=== PATIENT | female | born 1960 | race Caucasian/White ===

== ENCOUNTER 2022-10-25 12:10 | Inpatient (IN) | payer MEDICARE, OTHER ==
[~2022-10-25] VITALS: Ht 149 cm; Wt 55.0 kg
--- NOTE | 2022-10-25 12:24 | ED General ---
General Stated Complaint: EDEMA | SOA Source of Information: Patient, EMS Exam Limitations: Physical Impairments History of Present Illness Date Seen by Provider: Oct 25, 2022 Time Seen by Provider: 12:15 Initial Comments 62-year-old female with unknown past medical history coming in via EMS after a remote fall at unknown time, patient sitting on the couch found by sister. Patient covered in urine and old bruising. Patient jaundice per EMS with unknown time that this began. Patient states she does not believe she has liver disease. She does not know her medical problems at this time. Further elements of the history and physical were unable to be obtained due to the patient's mental status Allergies and Home Medications Allergies Coded Allergies: No Known Drug Allergies (Unverified , 10/25/22) Patient Home Medication List Home Medication List Reviewed: Yes Review of Systems Review of Systems Constitutional: No fever EENTM: no symptoms reported Respiratory: no symptoms reported Cardiovascular: no symptoms reported Gastrointestinal: no symptoms reported Genitourinary: no symptoms reported Musculoskeletal: back pain, joint pain Skin: see HPI Psychiatric/Neurological: See HPI Hematologic/Lymphatic: No Symptoms Reported Immunological/Allergic: no symptoms reported All Other Systems Reviewed Negative Unless Noted: Yes Past Gehcmle-Jmptff-Ibiuvs Hx Patient Social History Alcohol Use?: Yes Past Medical History Surgery/Hospitalization HX: Unknown surgical history Physical Exam Vital Signs Vital Signs - First Documented 10/25/22 10/25/22 12:10 12:52 Temp 36.2 Pulse 105 Resp 21 B/P (MAP) 115/68 (84) Pulse Ox 99 O2 Delivery Nasal Cannula O2 Flow Rate 3.00 Capillary Refill : Height, Weight, BMI Height: '" Weight: lbs. oz. kg; BMI Method: General Appearance: No Apparent Distress, WD/WN Eyes: Bilateral Eye Normal Inspection, Bilateral Eye Scleral Icterus HEENT: PERRL/EOMI, Normal ENT Inspection, Pharynx Normal Neck: Full Range of Motion, Normal Inspection, Non Tender, Supple Respiratory: Chest Non Tender, No Accessory Muscle Use, No Respiratory Distress, Crackles Cardiovascular: Normal Peripheral Pulses, Tachycardia, Other (Lower extremity edema) Gastrointestinal: Normal Bowel Sounds, Non Tender, Soft; No Guarding Back: No Vertebral Tenderness, Other (Significant bruising to the right flank, left flank, pelvis) Extremity: Normal Capillary Refill, Normal Range of Motion, No Calf Tenderness, Pedal Edema, Other (Bruising to the front of the right thigh) Neurologic/Psychiatric: Alert, No Motor/Sensory Deficits, Normal Mood/Affect, Other (Oriented to person only) Skin: Warm/Dry, Other (Scleral icterus, jaundiced) Lymphatic: No Adenopathy Progress/Results/Core Measures Suspected Sepsis SIRS Temperature: Pulse: Respiratory Rate: Laboratory Tests 10/25/22 12:55: White Blood Count 14.0H Blood Pressure / Mean: Laboratory Tests 10/25/22 12:55: Creatinine 0.60, INR Comment 2.4H, Platelet Count 84L, Total Bilirubin 12.5*H Results/Orders Lab Results Laboratory Tests Test 10/25/22 12:25 10/25/22 12:42 10/25/22 12:55 Range/Units Influenza Type A (RT-PCR) Detected H Not Detecte Influenza Type B (RT-PCR) Not Detected Not Detecte SARS-CoV-2 RNA (RT-PCR) Not Detected Not Detecte Urine Color YELLOW Urine Clarity CLEAR Urine pH 6.0 5-9 Urine Specific Pollard 1.015 L 1.016-1.022 Urine Protein NEGATIVE NEGATIVE Urine Glucose (UA) TRACE H NEGATIVE Urine Ketones TRACE H NEGATIVE Urine Nitrite NEGATIVE NEGATIVE Urine Bilirubin 3+ H NEGATIVE Urine Urobilinogen >=8.0 < = 1.0 MG/DL Urine Leukocyte Esterase NEGATIVE NEGATIVE Urine RBC (Auto) NEGATIVE NEGATIVE Urine RBC NONE /HPF Urine WBC 0-2 /HPF Urine Squamous Epithelial Cells NONE /HPF Urine Renal Epithelial Cells NONE /HPF Urine Crystals NONE /LPF Urine Bacteria NEGATIVE /HPF Urine Casts NONE /LPF Urine Mucus NEGATIVE /LPF Urine Culture Indicated NO Urine Opiates Screen NEGATIVE NEGATIVE Urine Oxycodone Screen NEGATIVE NEGATIVE Urine Methadone Screen NEGATIVE NEGATIVE Urine Propoxyphene Screen NEGATIVE NEGATIVE Urine Barbiturates Screen NEGATIVE NEGATIVE Ur Tricyclic Antidepressants Screen NEGATIVE NEGATIVE Urine Phencyclidine Screen NEGATIVE NEGATIVE Urine Amphetamines Screen NEGATIVE NEGATIVE Urine Methamphetamines Screen NEGATIVE NEGATIVE Urine Benzodiazepines Screen NEGATIVE NEGATIVE Urine Cocaine Screen NEGATIVE NEGATIVE Urine Cannabinoids Screen NEGATIVE NEGATIVE White Blood Count 14.0 H 4.3-11.0 10^3/uL Red Blood Count 3.23 L 3.80-5.11 10^6/uL Hemoglobin 10.4 L 11.5-16.0 g/dL Hematocrit 32 L 35-52 % Mean Corpuscular Volume 100 H 80-99 fL Mean Corpuscular Hemoglobin 32 25-34 pg Mean Corpuscular Hemoglobin Concent 32 32-36 g/dL Red Cell Distribution Width 22.9 H 10.0-14.5 % Platelet Count 84 L 130-400 10^3/uL Mean Platelet Volume 10.5 9.0-12.2 fL Prothrombin Time 26.9 H 12.2-14.7 SEC INR Comment 2.4 H 0.8-1.4 Activated Partial Thromboplast Time 39 H 24-35 SEC Fibrinogen 160 L 221-496 MG/DL Sodium Level 133 L 135-145 MMOL/L Potassium Level 3.4 L 3.6-5.0 MMOL/L Chloride Level 100 98-107 MMOL/L Carbon Dioxide Level 24 21-32 MMOL/L Anion Gap 9 5-14 MMOL/L Blood Urea Nitrogen 20 H 7-18 MG/DL Creatinine 0.60 0.60-1.30 MG/DL Estimat Glomerular Filtration Rate 101 BUN/Creatinine Ratio 33 Glucose Level 87 70-105 MG/DL Calcium Level 8.4 L 8.5-10.1 MG/DL Phosphorus Level 2.7 2.3-4.7 MG/DL Magnesium Level 2.5 H 1.6-2.4 MG/DL Total Bilirubin 12.5 *H 0.1-1.0 MG/DL Direct Bilirubin 7.2 H 0.0-0.3 MG/DL Indirect Bilirubin 5.3 MG/DL Aspartate Amino Transf (AST/SGOT) 153 H 5-34 U/L Alanine Aminotransferase (ALT/SGPT) 91 H 0-55 U/L Alkaline Phosphatase 119 40-136 U/L Total Protein 7.6 6.4-8.2 GM/DL Albumin 2.0 L 3.2-4.5 GM/DL Serum Alcohol < 10 <10 MG/DL My Orders Orders - LUKAS NÚÑEZ MD Ct Head/Cervical Spine Wo (10/25/22 12:18) Ed Iv/Invasive Line Start (10/25/22 12:18) Cbc No Diff (10/25/22 12:18) Basic Metabolic Panel (10/25/22 12:18) Phosphorus (10/25/22 12:18) Alcohol (10/25/22 12:18) Protime With Inr (10/25/22 12:18) Partial Thromboplastin Time (10/25/22 12:18) Fibrinogen (10/25/22 12:18) Ua Culture If Indicated (10/25/22 12:18) Liver Panel (10/25/22 12:18) Drug Screen Stat (Urine) (10/25/22 12:18) Magnesium (10/25/22 12:18) Type And Screen (10/25/22 12:18) End Tidal Co2 (10/25/22 12:18) O2 (10/25/22 12:18) Monitor-Rhythm Ecg Trace Only (10/25/22 12:18) Influenza A And B By Pcr (10/25/22 12:18) Covid 19 Inhouse Test (10/25/22 12:18) Ct Chest/Abdomen/Pelvis Wo (10/25/22 12:18) Ns Iv 1000 Ml (Sodium Chloride 0.9%) (10/25/22 14:45) Vancomycin Injection (Vancomycin Injecti (10/25/22 14:45) Cefepime Injection (Maxipime Injection) (10/25/22 14:45) Ammonia (10/25/22 14:44) Ed Admission (Communication) (10/25/22 14:45) Vital Signs/I&O 10/25/22 10/25/22 12:10 12:52 Temp 36.2 Pulse 105 Resp 21 B/P (MAP) 115/68 (84) Pulse Ox 99 98 O2 Delivery Nasal Cannula Nasal Cannula O2 Flow Rate 3.00 3.00 Capillary Refill : Progress Note : Progress Note 62yoF with above history coming in due to AMS and found down. Patient was hypoxic on presentation and placed on oxygen. An IV was placed and basic labs were obtained significant for T bili greater than 12. I called [facility] and have labs faxed over with her bilirubin August 03 of this year 5.8, creatinine 0.4, sodium 135, potassium 3.6, glucose 99, bicarb of 20, white blood cell count 3.49, hemoglobin 11.1, hemoglobin A1c 4.[address] head, cervical spine, chest, abdomen, pelvis today with concerns for bilateral pulmonary infiltrates. Influenza test was positive for influenza A. I contacted Dr. Yoon who will admit her for her respiratory failure. The patient was given antibiotics while in the ER. Of note, the patient does have an anterior shoulder dislocation on CT. I attempted to apply traction with countertraction with little success. I suspect the shoulder has been out since her fall almost 2 weeks ago, and is chronic at this point. She would be a terrible candidate for sedation which would be required to get the shoulder back in place. We will forego further attempts at this time. Diagnostic Imaging Diagonstic Imaging: CT (head, c spine, chest, abd/pelvis) Comments NAME: JAH YOUSSEF [facility] REC#: [id number] PT STATUS: REG ER : 1960 PHYSICIAN: LUKAS NÚÑEZ MD ADMIT DATE: 10/25/22/ER Draft Date of Exam:10/25/22 CT CHEST/ABDOMEN/PELVIS WO PROCEDURE: CT chest, abdomen, and pelvis without contrast. TECHNIQUE: Multiple contiguous axial images were obtained through the chest, abdomen, and pelvis without the use of intravenous contrast. Auto Exposure Controls were utilized during the CT exam to meet ALARA standards for radiation dose reduction. INDICATION: Confusion and recent fall. No prior studies are available for comparison. CT CHEST: FINDINGS: No axillary lymphadenopathy is identified. Mediastinal and hilar evaluation is limited without intravenous contrast. No definite mediastinal hematoma is identified. There is no pericardial or pleural fluid detected. Parenchymal evaluation does show some extensive airspace and ground-glass infiltrates involving the right upper lobe. There are patchy areas of ground-glass infiltrates throughout bilateral upper lobes as well as the right middle lobe and lingula. Bony structure evaluation does show an anterior dislocation of the right shoulder. The humeral head appears to be subcoracoid in location. There does appear to be impaction of the posterior humeral head consistent with Hill-Sachs deformity. No other bony abnormalities are detected. IMPRESSION: 1. Extensive patchy bilateral ground-glass and airspace pulmonary infiltrates, likely on an infectious/inflammatory basis. This is most marked involving the right upper lobe. COVID-19 infection cannot be entirely excluded. 2. Right anterior shoulder dislocation with Hill-Sachs deformity of the humeral head. CT ABDOMEN AND PELVIS: FINDINGS: There is somewhat nodular contour to the liver suggestive of cirrhosis. No discrete liver mass is identified. Spleen is normal in size. There is perihepatic and perisplenic ascites. Gallbladder is unremarkable. No definite biliary ductal dilatation is seen. The pancreas, adrenal glands, and kidneys are unremarkable apart from a probable cyst in the right kidney. The aorta is calcified but nonaneurysmal. Bowel loops appear to be normal in caliber without evidence of obstruction. There is some free fluid in the abdomen and pelvis. Uterus is unremarkable. Bladder is unremarkable. No acute bony abnormality is seen. IMPRESSION: 1. Lobulated contour to the liver, raising question of cirrhosis. There is some abdominal and pelvic ascites. No definite splenomegaly or varices are detected. 2. No other significant abnormality is detected. Dictated on workstation # [id number] Dict: 10/25/22 1412 Trans: 10/25/22 1426 [id number] Interpreted by: KYUNG LUA MD Electronically signed by: CONNOR VIA [place], [place] NAME: JAH YOUSSEF [facility] REC#: [id number] PT STATUS: REG ER : 1960 PHYSICIAN: LUKAS NÚÑEZ MD ADMIT DATE: 10/25/22/ER Draft Date of Exam:10/25/22 CT HEAD/CERVICAL SPINE WO PROCEDURE: CT head and CT cervical spine without contrast. TECHNIQUE: Multiple contiguous axial images were obtained through the brain and cervical spine without the use of intravenous contrast. Sagittal and coronal reformations through the cervical spine were then performed. Auto Exposure Controls were utilized during the CT exam to meet ALARA standards for radiation dose reduction. INDICATION: Fall. COMPARISON: No prior studies are available for comparison. FINDINGS: CT HEAD: Ventricles and sulci are within normal limits. There is some patchy periventricular low attenuation, consistent with chronic microvascular ischemia. No sulcal effacement or midline shift is identified. No acute intra-axial or extra-axial hemorrhage is detected. Cisterns are patent. Visualized paranasal sinuses are clear. IMPRESSION: Changes of chronic microvascular ischemia. No acute intracranial process is detected. CT CERVICAL SPINE: There is reversal of the normal cervical lordotic curvature. There is multilevel facet arthropathy, particularly left-sided facets. There is also C5-C6 degenerative disc disease with disc space narrowing and marginal spurring. No fractures are identified. Prevertebral tissues are within normal limits. Odontoid is intact. Imaging through the upper lung duran demonstrates extensive airspace infiltrate in the right upper lobe. There are some minimal patchy groundglass infiltrates in the left upper lobe. IMPRESSION: 1. Reversal of normal cervical lordotic curvature. No acute bony abnormality is detected. 2. Extensive airspace infiltrate in the right upper lobe with some minimal patchy groundglass infiltrate in the left upper lobe. Dictated on workstation # [id number] Dict: 10/25/22 1359 Trans: 10/25/22 1415 [id number] Interpreted by: KYUNG LUA MD Electronically signed by: Departure Impression Primary Impression: Respiratory failure Qualified Codes: J96.01 - Acute respiratory failure with hypoxia Additional Impressions: Influenza A Liver failure Qualified Codes: K72.00 - Acute and subacute hepatic failure without coma Anterior shoulder dislocation Qualified Codes: S43.014A - Anterior dislocation of right humerus, initial encounter Disposition: ADMITTED INPATIENT Condition: Stable Admissions Decision to Admit Reason: Admit from ER (General) Decision to Admit/Date: Oct 25, 2022 Time/Decision to Admit Time: 14:30 LUKAS NÚÑEZ MD Oct 25, 2022 12:24
[2022-10-25 12:52] LABS: CLARITY,URINE CLEAR; COLOR,URINE YELLOW; GLUCOSE, URINE (UA) TRACE (NEGATIVE); KETONES,URINE TRACE (NEGATIVE); LEUKOCYTE ESTERASE ,URINE NEGATIVE (NEGATIVE); NITRITE,URINE NEGATIVE (NEGATIVE); PROTEIN,URINE NEGATIVE (NEGATIVE)
[2022-10-25 13:04] LABS: AMPHETAMINE SCREEN, URINE NEGATIVE (NEGATIVE); BARBITURATE SCREEN URINE NEGATIVE (NEGATIVE); BENZODIAZEPINES SCREEN URINE NEGATIVE (NEGATIVE); CANNABINOID SCREEN, URINE NEGATIVE (NEGATIVE); COCAINE SCREEN URINE NEGATIVE (NEGATIVE); METHADONE STAT NEGATIVE (NEGATIVE); OPIATE SCREEN URINE NEGATIVE (NEGATIVE); TRICYCLIC ANTIDEPRESSANTS SCRE NEGATIVE (NEGATIVE)
[2022-10-25 13:05] LABS: OXYCODONE STAT NEGATIVE (NEGATIVE); PROPOXYPHENE STAT NEGATIVE (NEGATIVE)
[2022-10-25 13:06] LABS: BACTERIA,URINE NEGATIVE /HPF; BILIRUBIN,URINE 3+ (NEGATIVE); WBC,URINE 0-2 /HPF
[2022-10-25 13:15] LABS: HEMATOCRIT 32 % (35-52); HEMOGLOBIN 10.4 g/dL (11.5-16.0); MEAN CORPUSCULAR HEMOGLOBIN 32 pg (25-34); MEAN CORPUSCULAR HGB CONC 32 g/dL (32-36); MEAN CORPUSCULAR VOLUME 100 fL (80-99); MEAN PLATELET VOLUME 10.5 fL (9.0-12.2); PLATELET COUNT 84 10^3/uL (130-400)
[2022-10-25 13:38] LABS: INR 2.4 (0.8-1.4); PROTHROMBIN TIME PATIENT 26.9 SEC (12.2-14.7)
[2022-10-25 13:49] LABS: ALANINE AMINOTRANSFERASE 91 U/L (0-55); ALKALINE PHOSPHATASE 119 U/L (40-136); BILIRUBIN,DIRECT 7.2 MG/DL (0.0-0.3); BILIRUBIN,INDIRECT 5.3 MG/DL; BUN/CREATININE RATIO 33; CALCIUM 8.4 MG/DL (8.5-10.1); CARBON DIOXIDE 24 MMOL/L (21-32); CHLORIDE 100 MMOL/L (98-107); GFR ESTIMATED 101; GLUCOSE 87 MG/DL (70-105); MAGNESIUM 2.5 MG/DL (1.6-2.4); PHOSPHORUS 2.7 MG/DL (2.3-4.7); POTASSIUM 3.4 MMOL/L (3.6-5.0); SODIUM 133 MMOL/L (135-145); TOTAL PROTEIN 7.6 GM/DL (6.4-8.2)
--- NOTE | 2022-10-25 14:15 | Diagnostic Imaging Report ---
PROCEDURE: CT head and CT cervical spine without contrast. TECHNIQUE: Multiple contiguous axial images were obtained through the brain and cervical spine without the use of intravenous contrast. Sagittal and coronal reformations through the cervical spine were then performed. Auto Exposure Controls were utilized during the CT exam to meet ALARA standards for radiation dose reduction. INDICATION: Fall. COMPARISON: No prior studies are available for comparison. FINDINGS: CT HEAD: Ventricles and sulci are within normal limits. There is some patchy periventricular low attenuation, consistent with chronic microvascular ischemia. No sulcal effacement or midline shift is identified. No acute intra-axial or extra-axial hemorrhage is detected. Cisterns are patent. Visualized paranasal sinuses are clear. IMPRESSION: Changes of chronic microvascular ischemia. No acute intracranial process is detected. CT CERVICAL SPINE: There is reversal of the normal cervical lordotic curvature. There is multilevel facet arthropathy, particularly left-sided facets. There is also C5-C6 degenerative disc disease with disc space narrowing and marginal spurring. No fractures are identified. Prevertebral tissues are within normal limits. Odontoid is intact. Imaging through the upper lung duran demonstrates extensive airspace infiltrate in the right upper lobe. There are some minimal patchy groundglass infiltrates in the left upper lobe. IMPRESSION: 1. Reversal of normal cervical lordotic curvature. No acute bony abnormality is detected. 2. Extensive airspace infiltrate in the right upper lobe with some minimal patchy groundglass infiltrate in the left upper lobe. Dictated by: Dictated on workstation # [id number]
[2022-10-25 14:16] LABS: BILIRUBIN,TOTAL 12.5 MG/DL (0.1-1.0)
--- NOTE | 2022-10-25 14:26 | Diagnostic Imaging Report ---
PROCEDURE: CT chest, abdomen, and pelvis without contrast. TECHNIQUE: Multiple contiguous axial images were obtained through the chest, abdomen, and pelvis without the use of intravenous contrast. Auto Exposure Controls were utilized during the CT exam to meet ALARA standards for radiation dose reduction. INDICATION: Confusion and recent fall. No prior studies are available for comparison. CT CHEST: FINDINGS: No axillary lymphadenopathy is identified. Mediastinal and hilar evaluation is limited without intravenous contrast. No definite mediastinal hematoma is identified. There is no pericardial or pleural fluid detected. Parenchymal evaluation does show some extensive airspace and ground-glass infiltrates involving the right upper lobe. There are patchy areas of ground-glass infiltrates throughout bilateral upper lobes as well as the right middle lobe and lingula. Bony structure evaluation does show an anterior dislocation of the right shoulder. The humeral head appears to be subcoracoid in location. There does appear to be impaction of the posterior humeral head consistent with Hill-Sachs deformity. No other bony abnormalities are detected. IMPRESSION: 1. Extensive patchy bilateral ground-glass and airspace pulmonary infiltrates, likely on an infectious/inflammatory basis. This is most marked involving the right upper lobe. COVID-19 infection cannot be entirely excluded. 2. Right anterior shoulder dislocation with Hill-Sachs deformity of the humeral head. CT ABDOMEN AND PELVIS: FINDINGS: There is somewhat nodular contour to the liver suggestive of cirrhosis. No discrete liver mass is identified. Spleen is normal in size. There is perihepatic and perisplenic ascites. Gallbladder is unremarkable. No definite biliary ductal dilatation is seen. The pancreas, adrenal glands, and kidneys are unremarkable apart from a probable cyst in the right kidney. The aorta is calcified but nonaneurysmal. Bowel loops appear to be normal in caliber without evidence of obstruction. There is some free fluid in the abdomen and pelvis. Uterus is unremarkable. Bladder is unremarkable. No acute bony abnormality is seen. IMPRESSION: 1. Lobulated contour to the liver, raising question of cirrhosis. There is some abdominal and pelvic ascites. No definite splenomegaly or varices are detected. 2. No other significant abnormality is detected. Dictated by: Dictated on workstation # [id number]
[2022-10-25] MEDS ORDERED: NS IV 1000 ML 1,000 ML IV SCH (14:45)
[2022-10-25] MEDS ORDERED: VANCOMYCIN INJECTION 1,000 MG in NS (IVPB) 250 ML IV ONE (14:45)
[2022-10-25] MEDS ORDERED: CEFEPIME INJECTION 1,000 MG in NS (IVPB) 50 ML IV ONE (14:45)
--- NOTE | 2022-10-25 15:35 | Diagnostic Imaging Report ---
INDICATION: Right shoulder pain. TECHNIQUE: AP, oblique, and transscapular views of the right shoulder are obtained. FINDINGS: There is anterior or subcoracoid dislocation of the right glenohumeral joint. There are underlying chronic changes of the AC joint and glenohumeral joint. IMPRESSION: Underlying degenerative findings. Evidence of subcoracoid or anterior dislocation of the right glenohumeral joint. Dictated by: Dictated on workstation # [id number]
[2022-10-25] MEDS ORDERED: polyethylene glycoL POWDER 17 GM (MIRALAX) PACK PO PRN (16:30)
[2022-10-25] MEDS ORDERED: BISACODYL 10 MG SUPP (DULCOLAX) PR PRN (16:30)
[2022-10-25] MEDS ORDERED: ONDANSETRON 4 MG/2 ML (SDV) Z0FRAN IV PRN (16:30)
[2022-10-25] MEDS ORDERED: ANTACID SUSP 30 ML UDC (MYLANTA) PO PRN (16:30)
[2022-10-25] MEDS ORDERED: MELATONIN 3 MG TABLET PO PRN (16:30)
[2022-10-25] MEDS ORDERED: MILK OF MAGNESIA 400 MG/5 ML 30 ML UDC PO PRN (16:30)
[2022-10-25] MEDS ORDERED: ACETAMINOPHEN 325 MG TABLET PO PRN (16:30)
[2022-10-25] MEDS ORDERED: ONDANSETRON 4 MG (ZOFRAN) ORAL DISSOLVE TAB PO PRN (16:30)
[2022-10-25] MEDS ORDERED: CALCIUM CARBONATE 500 MG (TUMS) TAB.CHEW PO PRN (16:30)
[2022-10-25] MEDS ORDERED: AZITHROMYCIN 250 MG TAB (ZITHROMAX) PO NR (16:45)
[2022-10-25] MEDS: D5 1/2 NS W/KCL 20 MEQ/L 1,000 ML IV SCH (17:14)
[2022-10-25] MEDS: ENOXAPARIN 40 MG/0.4 ML (LOVENOX) SYR SC SCH (17:15)
[2022-10-25] MEDS: cefTRIAXone 1 GM PRE-MIX 50 ML IV SCH (17:16)
[2022-10-25] MEDS ORDERED: AZITHROMYCIN INJECTION 500 MG in NS (IVPB) 250 ML IV NR (17:45)
[2022-10-25 19:33] VITALS: BP 101/49
[2022-10-25 19:36] VITALS: BP 94/44
[2022-10-25] MEDS ORDERED: ACETAMINOPHEN 650 MG SUPP (TYLENOL) PR PRN (20:00)
[2022-10-25] MEDS: LACTULOSE SYRUP 10GM/15ML (ENULOSE) 30ML UDC PO SCH (20:08)
[2022-10-25] MEDS: SENNOSIDES 8.6 MG (SENOKOT) TAB PO SCH (20:08)
[2022-10-25] MEDS: DOCUSATE SODIUM 100 MG (COLACE) CAP PO SCH (20:08)
[2022-10-25] MEDS ORDERED: ZIPRASIDONE 20 MG INJ (GEODON) VIAL IM PRN (20:15)
[2022-10-25] MEDS ORDERED: LORazepam INJ 2 MG/ML (ATIVAN) VIAL IVP PRN (20:15)
[2022-10-25] MEDS ORDERED: WATER (STERILE) FOR INJ 10 ML BTL INJ SCH (20:15)
[2022-10-25] MEDS ORDERED: ACETAMINOPHEN 650 MG SUPP (TYLENOL) ONE (20:21)
[2022-10-25] MEDS: OSELTAMIVIR 75 MG (TAMIFLU) CAPSULE PO SCH (20:32)
[2022-10-26] VITALS (7 sets, daily range): BP systolic 90–128; BP diastolic 47–63
[2022-10-26 06:13] LABS: BASOPHILS % (AUTO) 0 % (0-10); HEMOGLOBIN 8.9 g/dL (11.5-16.0)
[2022-10-26 06:15] LABS: BASOPHILS # (AUTO) 0.1 10^3/uL (0.0-0.1); EOSINOPHILS # (AUTO) 0.1 10^3/uL (0.0-0.3); EOSINOPHILS % (AUTO) 0 % (0-10); HEMATOCRIT 28 % (35-52); LYMPHOCYTES # (AUTO) 1.8 10^3/uL (1.0-4.0); LYMPHOCYTES % (AUTO) 8 % (12-44); MEAN CORPUSCULAR HEMOGLOBIN 32 pg (25-34); MEAN CORPUSCULAR HGB CONC 32 g/dL (32-36); MEAN CORPUSCULAR VOLUME 101 fL (80-99); MEAN PLATELET VOLUME 10.7 fL (9.0-12.2); MONOCYTES # (AUTO) 1.6 10^3/uL (0.0-1.0); MONOCYTES % (AUTO) 7 % (0-12); NEUTROPHILS # (AUTO) 18.1 10^3/uL (1.8-7.8); NEUTROPHILS % (AUTO) 83 % (42-75); PLATELET COUNT 61 10^3/uL (130-400); WHITE BLOOD COUNT 21.8 10^3/uL (4.3-11.0)
[2022-10-26 06:36] LABS: ANISOCYTOSIS MARKED; BAND NEUTROPHILS 1 %; EOSINOPHILS % (MANUAL) 1 %; LYMPHOCYTES % (MANUAL) 4 %; MONOCYTES % (MANUAL) 6 %; NEUTROPHILS % (MANUAL) 88 %; NUCLEATED RED BLOOD CELLS 1; POLYCHROMASIA MODERATE
[2022-10-26 06:37] LABS: TARGET CELLS SLIGHT
[2022-10-26 06:41] LABS: ALBUMIN 1.6 GM/DL (3.2-4.5); BILIRUBIN,TOTAL 10.5 MG/DL (0.1-1.0); CALCIUM 7.9 MG/DL (8.5-10.1); CREATININE SERUM 0.65 MG/DL (0.60-1.30); POTASSIUM 3.8 MMOL/L (3.6-5.0); TOTAL PROTEIN 6.2 GM/DL (6.4-8.2)
[2022-10-26] MEDS: LACTULOSE SYRUP 10GM/15ML (ENULOSE) 30ML UDC PO SCH ×3 (07:37→20:16)
[2022-10-26] MEDS: OSELTAMIVIR 75 MG (TAMIFLU) CAPSULE PO SCH ×3 (07:37→20:15)
[2022-10-26] MEDS: SENNOSIDES 8.6 MG (SENOKOT) TAB PO SCH ×2 (07:37→20:16)
[2022-10-26] MEDS: DOCUSATE SODIUM 100 MG (COLACE) CAP PO SCH ×2 (07:37→20:16)
[2022-10-26] MEDS: AZITHROMYCIN 250 MG TAB (ZITHROMAX) PO SCH ×2 (07:38→09:36)
--- NOTE | 2022-10-26 09:53 | Physical Therapy Evaluation ---
PT Evaluation-General Medical Diagnosis Admission Date Oct 25, 2022 at 14:45 Medical Diagnosis: Flu A/respiratory distress Onset Date: Oct 25, 2022 Therapy Diagnosis Therapy Diagnosis: severe weakness/debility Precautions Precautions/Isolations: Droplet Isolation Referral Physician: Car Reason for Referral: Evaluation/Treatment Medical History Current History EMS secondary to fall and decline in status Reviewed History: Yes Social History Home: Apartment Prior Prior Level of Function SCALE: Activities may be completed with or without assistive devices. 8-Rtzvrpsqnb-pzwtndn completes the activity by him/herself with no assistance from a helper. 5-Set-up or Clean-up Assistance-helper sets up or cleans up; patient completes activity. [place] assists only prior to or following the activity. 4-Supervision or Touching Assistance-helper provides verbal cues and/or touching/steadying and/or contact guard assistance as patient completes activity. Assistance may be provided throughout the activity or intermittently. 3-Partial/Moderate Assistance-helper does LESS THAN HALF the effort. [place] lifts, holds or supports trunk or limbs, but provides less than half the effort. 2-Substantial/Maximal Assistance-helper does MORE THAN HALF the effort. [place] lifts or holds trunk or limbs and provides more than half the effort. 7-Wzvmqymtu-udalyn does ALL the effort. Patient does none of the effort to complete the activity. Or, the assistance of 2 or more helpers is required for the patient to complete the activity. If activity was not attempted, code reason: 7-Patient Refused. 9-Not Applicable-not attempted and the patient did not perform the activity before the current illness, exacerbation or injury. 10-Not Attempted due to Environmental Limitations-(lack of equipment, weather restraints, etc.). 88-Not Attempted due to Medical Conditions or Safety Concerns. unable to determine due to patient's confusion PT Evaluation-Current Subjective Patient yells with turning in bed. Objective Patient Orientation: Confused Attachments: Sesay Catheter, IV ROM/Strength ROM Lower Extremities bilateral LE WFL Strength Lower Extremities NT Integumentary/Posture Bladder Incontinence: Sesay Cath Neuromuscular (Tone, Coordination, Reflexes) severely diminished with all Sensory Vision: Unable to Assess Hearing: Functional Transfers Roll Left to Right (QC): 1 (x 2) Assessment/Needs Patient has a wound on her sacrum/coccyx with wound care nurse in to assess. Patient is currently severely confused and resistive with all mobility. PT will continue to increase activity as tolerated by patient. Rehab Potential: Poor PT Shelter Goals Shelter Goals PT Crib Pad Maker Goals Time Frame: Nov 13, 2022 Roll Left & Right (QC): 3 Sit to Lying (QC): 3 Lying-Sitting on Side/Bed(QC): 3 Sit to Stand (QC): 3 Chair/Zez-hc-Ypeto Xfer(QC): 3 Toilet Transfer (QC): 3 Walk 10 feet (QC): 3 PT Plan Problem List Problem List: Activity Tolerance, Functional Strength, Safety, Balance, Gait, Transfer, Bed Mobility Treatment/Plan Treatment Plan: Continue Plan of Care Treatment Plan: Bed Mobility, Education, Functional Activity Jun, Functional Strength, Gait, Safety, Therapeutic Exercise, Transfers Treatment Duration: Nov 13, 2022 Frequency: 5 times per week Estimated Hrs Per Day: .25 hour per day Time Time In: 910 Time Out: 921 DATE: Oct 26, 2022 Total Billed Treatment Time: 11 Total Billed Treatment 1 visit [facility] 11 min MICHA JO PT Oct 26, 2022 09:53
[2022-10-26] MEDS: D5 1/2 NS W/KCL 20 MEQ/L 1,000 ML IV SCH ×2 (10:22→20:24)
--- NOTE | 2022-10-26 11:31 | Occupational Therapy Eval ---
OT Evaluation-General/PLF Medical Diagnosis Admission Date Oct 25, 2022 at 14:45 Medical Diagnosis: Flu A/respiratory distress Onset Date: Oct 25, 2022 Therapy Diagnosis Therapy Diagnosis: reduced adl status Precautions Precautions/Isolations: Droplet Isolation, Fall Prevention, Pressure Ulcer Referral Physician: Car Green Reason: Evaluation/Treatment Medical History Additional Medical History end stage liver disease, jaundice Current History Pt presented to ER after fall and decline in status. Jaundice observable and very large wound on sacrum/coccyx area. Pt having difficulty answering PLOF questions however family present and able to provide accurate responses. Per family, pt lives alone in an apartment. She was independent with adls and iadls prior to Thanks and uses a walker at baseline. Pt does not drive, thus family provides groceries and transportation. Social History Home: Apartment (located in basement) Current Living Status: Alone Entry Into Home: Stairs With Railing ADL-Prior Level of Function SCALE: Activities may be completed with or without assistive devices. 0-Fzcrtfvtns-simbxpd completes the activity by him/herself with no assistance from a helper. 5-Set-up or Clean-up Assistance-helper sets up or cleans up; patient completes activity. [place] assists only prior to or following the activity. 4-Supervision or Touching Assistance-helper provides verbal cues and/or touching/steadying and/or contact guard assistance as patient completes activity. Assistance may be provided throughout the activity or intermittently. 3-Partial/Moderate Assistance-helper does LESS THAN HALF the effort. [place] lifts, holds or supports trunk or limbs, but provides less than half the effort. 2-Substantial/Maximal Assistance-helper does MORE THAN HALF the effort. [place] lifts or holds trunk or limbs and provides more than half the effort. 9-Amygjovkl-vixkno does ALL the effort. Patient does none of the effort to complete the activity. Or, the assistance of 2 or more helpers is required for the patient to complete the activity. If activity was not attempted, code reason: 7-Patient Refused. 9-Not Applicable-not attempted and the patient did not perform the activity before the current illness, exacerbation or injury. 10-Not Attempted due to Environmental Limitations-(lack of equipment, weather restraints, etc.). 88-Not Attempted due to Medical Conditions or Safety Concerns. Self Care: Independent Functional Cognition: Unknown DME/Equipment: Bath Chair (family just recently bought a shower chair per sister. ), Tub/Shower Drive Self: No OT Current Status Subjective Pt reports significant pain in back at OT arrival. She presents in sidelying. Appearance Pt left in sidelying at OT departure, family present in room. Mental Status/Objective Patient Orientation: Person, Confused Attachments: Sesay Catheter, IV, Oxygen Current Glasses/Contacts: No Hearing Aids: No Dentures/Partials: No Hand Dominance: Left Upper Extremity ROM Pt refuses A/PROM at shoulders, elbows, and wrist due to c/o pain and being too cold. She does actively move hand/fingers upon request. Upper Extremity Strength severely debilitated ADL-Treatment Eating (QC): 1 (per report) On/Off Footwear (QC): 1 Toileting Hygiene (QC): 1 Pt refuses all ADLs even at bed level. Per PT, pt requires assist x2 to roll R/L. Per patient, she has a fear of falling off the bed and thus that is why she needed extra assist. Encouragement to perform as much as possible during stay in order to increase strength/endurance needed for functional tasks. Education OT Patient Education: Correct positioning, Purpose of tx/functional activities, Safety issues, Transfer techniques Teaching Recipient: Patient Teaching Methods: Demonstration, Discussion Response to Teaching: Verbalize Understanding, Return Demonstration, Reinfor cement Needed OT Care Home Goals Care Home Goals Time Frame: Nov 16, 2022 Eating (QC): 4 Oral Hygiene (QC): 4 Toileting Hygiene (QC): 3 Shower/Bathe Self (QC): 3 Upper Body Dressing (QC): 3 Lower Body Dressing (QC): 3 On/Off Footwear (QC): 3 Additional Goals: 1-Demonstrate ADL Tasks, 2-Verbalize Understanding, 3- ImproveStrength/Jun 1=Demonstrate adherence to instructed precautions during ADL tasks. 2=Patient will verbalize/demonstrate understanding of assistive devices/modifications for ADL. 3=Patient will improve strength/tolerance for activity to enable patient to perform ADL's. OT Education/Plan Problem List/Assessment Assessment: Decreased Activ Tolerance, Decreased Safety Aware, Decreased UE Strength, Dependent Transfers, Impaired Bed Mobility, Impaired Cognition, Impaired Funct Balance, Impaired I ADL's, Impaired Self-Care Skills, Restricted Funct UE ROM Discharge Recommendations Plan/Recommendations: Continue POC Therapy Discharge Recommendati: 24 Hour Supervision, Scheduled Assistance, Bath Aide, Post Acute OT Treatment Plan/Plan of Care Treatment,Training & Education: Yes Patient would benefit from OT for education, treatment and training to promote independence in ADL's, mobility, safety and/or upper extremity function for ADL's. Plan of Care: ADL Retraining, Caregiver Training, Cognitive Retraining, Functional Mobility, Group Exercise/Act as Ind, UE Funct Exercise/Act Treatment Duration: Nov 16, 2022 Frequency: 3 times per week (3-5x/week ) Estimated Hrs Per Day: .25 hour per day Rehab Potential: Poor Time Start Time: 11:13 Stop Time: 11:23 DATE: Oct 26, 2022 Total Time Billed (hr/min): 10 Billed Treatment Time 1 visit Nori Persaud OT Oct 26, 2022 11:31
--- NOTE | 2022-10-26 12:40 | History & Physical-Hospitalist ---
PATYCHRISWILBUR MED STUDENT 10/26/22 1240: History of Present Illness HPI/Chief Complaint Maria Del Rosario is a 62 yo female admitted for respiratory failure and influenza A. Pt's past medical hx is unknown as she is a poor historian. She is alert and oriented x2 with son and sister at bedside. Sister reports there is no DPOA for medical decision making. The pt lives at home alone and had recent falls. The sister apparently found her on the couch covered in urine and bruises. She reports her house is dark, so they did not notice how yellow she was becoming. They only became aware of the liver disease within the last month after going to Dr. Miller for blood work. Family reports pt drinks a 12 pack of beer every couple days and smokes 1-2 ppd of cigarettes. She has been doing both of these for some time. Her last drink and cigarette were 10/13. She has not taking any of her prescribed medications since then either. Pt has coccyx ulceration that family states they just noticed about a week ago. They report she has been sick recently, but they thought she was doing better. Pt was found to have total bilirubin of 10.5. On 08/03/22 t-bili was 5.8 acc ording to ED records. CT chest showed patchy bilateral ground glass and airspace pulmonary infiltrated. CT abd/pelvis showed lobulated liver likely cirrhosis and some abdominal/pelvic ascites. She was also found to have a right anterior shoulder dislocation that was not reducible. She is currently on 4L O2 via NC with adequate oxygen saturations. Source: patient, family Date Seen 10/26/22 Time Seen by a Provider: 09:00 Attending Physician No,Local Physician PCP Admitting Physician: Sonja Flores MD Attending Physician: Sonja Flores MD Referring Physician Date of Admission Oct 25, 2022 at 14:45 Home Medications & Allergies Home Medications Reviewed patient Home Medication Reconciliation performed by pharmacy medication reconciliations central sterile technician and/or nursing. Patients Allergies have been reviewed. Allergies Allergies Coded Allergies No Known Drug Allergies (Jpijnxewmt81/5/22) Past Eczlcfc-Owyvjt-Ynvoco Hx Patient Social History Tobacco Use?: Yes Tobacco type used: Cigarettes Smoking Status: Current Someday Smoker Use of E-Cig and/or Vaping dev: Unable to obtain Substance use?: Unable to obtain Alcohol Use?: Unable to obtain Alcohol type: Beer Alcohol Frequency: Daily Pt feels they are or have been: Unable to obtain Current Status status: Unable to obtain status: Unable to obtain Advance Directives: Unable to obtain Communicates: Verbally Primary Language: Chinese Preferred Spoken Language: Chinese Is interpretation needed?: No Implanted or Applied Medical D: None Review of Systems Constitutional: No chills, No fever; malaise, weakness EENTM: no symptoms reported Respiratory: cough, phlegm Cardiovascular: No chest pain, No palpitations Gastrointestinal: jaundice, loss of appetite Genitourinary: no symptoms reported Musculoskeletal: back pain Skin: change in color Psychiatric/Neurological: No Symptoms Reported Physical Exam Physical Exam Vital Signs Vital Signs - First Documented 10/25/22 10/25/22 12:10 12:52 Temp 36.2 Pulse 105 Resp 21 B/P (MAP) 115/68 (84) Pulse Ox 99 O2 Delivery Nasal Cannula O2 Flow Rate 3.00 Capillary Refill : Less Than 3 Seconds Height, Weight, BMI Height: '" Weight: lbs. oz. kg; 24.77 BMI Method: General Appearance: Chronically ill, Thin HEENT: PERRL/EOMI, Other (Dry mucous membranes) Neck: Full Range of Motion, Normal Inspection Respiratory: Rales, Rhonci, Wheezing Cardiovascular: Regular Rate, Rhythm, No Murmur Gastrointestinal: Non Tender, Soft Extremity: Pedal Edema (2+ pitting edema), Other (woody texture to bilateral feet and ankles) Neurologic/Psychiatric: Alert, Depressed Affect, Disoriented Skin: Jaundice Results Results/Procedures Labs Laboratory Tests 10/25/22 12:55 10/26/22 05:45 Patient resulted labs reviewed. Assessment/Plan Admission Diagnosis Chronic Liver Disease Acute respiratory failure Severe sepsis d/t pneumonia Influenza A Assessment and Plan Chronic Liver Disease Acute respiratory failure Severe sepsis d/t pneumonia Influenza A Coccyx ulcer Anemia Right anterior shoulder dislocation ETOH and tobacco abuse Chronic Liver Disease -Total bili 10.5, increased from 5.8 in July -INR 2.4, AST and ALT elevated -CT abd/pelvis showed lobulated liver likely cirrhosis Acute respiratory failure -On 4L NC currently with adequate saturations Severe sepsis d/t pneumonia -Azithromycin and Ceftriaxone -NaCl at 75mls/hr Influenza A -Supportive care Coccyx ulcer -Wound care consulted -Likely not a surgical candidate for debridement with frail state Anemia Right anterior shoulder dislocation -Not reducible d/t chronicity of dislocation ETOH and tobacco abuse Disposition: Had lengthy discussion with son and sister about pt's poor progno sis. Discussed options for care including hospice. Discussed that pt would not likely be a candidate for debridement of coccyx wound d/t liver disease and inability to intubate. Will talk to social science manager who can provide pt and family with more information on hospice options. Diet: Regular Code status: Full Code Diagnosis/Problems Diagnosis/Problems (1) Decompensated hepatic cirrhosis Status: Acute (2) Anterior shoulder dislocation Status: Acute Qualifiers: Encounter type: initial encounter Laterality: right Qualified Codes: S43.014A - Anterior dislocation of right humerus, initial encounter (3) Respiratory failure Status: Acute Qualifiers: Chronicity: acute Respiratory failure complication: hypoxia Qualified Codes: J96.01 - Acute respiratory failure with hypoxia (4) Influenza A Status: Acute SONJA FLORES MD 10/26/22 1901: History of Present Illness Source: patient, family Exam Limitations: clinical condition Time Seen by a Provider: 11:15 Past Dtokzax-Czwigg-Dkwwyw Hx Family Medical History No Pertinent Family Hx Results Results/Procedures Imaging: Reviewed Imaging Report Assessment/Plan Admission Diagnosis Admission Status: Inpatient Order (span 2 midnights) Reason for Inpatient Admission: Severe sepsis Osteomyelitis Liver failure Influenza Assessment and Plan Admitted with multiple medical issues. Acute on chronic liver failure with end stage liver disease secondary to chronic alcohol use. Severe sepsis with pneumonia and stage IV sacral decubitus ulcer with gram negative chadd bacteremia, started on antibiotics. Wound care consulted for ulcer. Also with influenza A infection. Due to her end stage liver disease and hypoalbuminemia, she is a poor surgical candidate with very low likelihood of wound healing. Her Meld score indicates high risk of 3 month mortality despite her sacral wound and osteomyelitis. We discussed hospice care with the patient and her family. She is slightly confused but was able to voice understanding and agreed with a comfort based approach. Her family will discuss hospice and palliative care will provide further information. If they choose not to pursue hospice, we will move forward with surgical consult for debridement. She will also need Orthopedic surgery consult to evaluate her dislocated shoulder. We will await the family's final decision regarding hospice care. Diagnosis/Problems Diagnosis/Problems (1) Respiratory failure Status: Acute Qualifiers: Chronicity: acute Respiratory failure complication: hypoxia Qualified Codes: J96.01 - Acute respiratory failure with hypoxia (2) Influenza A Status: Acute (3) Decompensated hepatic cirrhosis Status: Acute (4) Severe sepsis Status: Acute (5) Osteomyelitis of sacrum Status: Acute (6) Stage IV pressure ulcer of sacral region Status: Acute (7) Gram-negative bacteremia Status: Acute (8) Poor prognosis Status: Acute (9) Goals of care, counseling/discussion Status: Acute (10) Hypoalbuminemia due to protein-calorie malnutrition Status: Acute (11) Alcohol abuse Status: Acute (12) Tobacco abuse Status: Acute (13) Anterior shoulder dislocation Status: Acute Qualifiers: Encounter type: initial encounter Laterality: right Qualified Codes: S43.014A - Anterior dislocation of right humerus, initial encounter Supervisory-Addendum Brief Verification & Attestation Participated in pt care: history, MDM, physical Personally performed: exam, history, MDM, supervision of care Care discussed with: Medical Student Procedures: n/a Results interpretation: Verified all documentation A medical student performed and documented this service in my presence. I reviewed and verified all information documented by the medical student and made modifications to such information, when appropriate. I personally performed the physical exam and medical decision making. WILBUR LUCIANO MED STUDENT Oct 26, 2022 12:40 SONJA FLORES MD Oct 26, 2022 19:01
[2022-10-26] MEDS: KETOROLAC 15 MG/ML VIAL IVP PRN (13:37)
[2022-10-26] MEDS ORDERED: HYPOCHLOROUS ACID/NaCl (VASHE) 250 ML IR SCH (16:00)
[2022-10-26] MEDS ORDERED: ALPR0.5T7 PO (16:06)
[2022-10-26] MEDS ORDERED: DESV50TA18 PO (16:06)
[2022-10-26] MEDS ORDERED: FURO40TA4 PO (16:06)
[2022-10-26] MEDS ORDERED: QUET100T33 PO (16:06)
--- NOTE | 2022-10-26 16:25 | Wound Care Assessment ---
Wound Care Assessment Date Seen by Provider: Oct 26, 2022 Time Seen by Provider: 15:00 Chief Complaint Unstageable Sacral Pressure Ulcer HPI This 62 year old patient presented to the hospital with influenza A and numerous medical ailments. She is a poor historian and history is obtained from nursing staff and chart only. Maria Del Rosario has end stage liver disease with anemia, thrombocytopenia, severe PEM, ascites, scleral icterus, jaundice, altered mental status and gram negative bacteremia. Upon admission skin assessment she was noted to have a large unstageable pressure ulcer on her sacrum. There is dark eschar to the area that does feel soft underlying. There is a good possibility of very deep ulceration underlying the area of concern. However, due to the size of this ulcer and Maria Del Rosario's severe medical ailments, she is a poor candidate for surgery/anesthesia. Maria Del Rosario has been said to drink a 12 pack every 1-2 days and smokes 1-2 ppd as well. She has severe PEM (albumin of 1.6 today) which is likely both nutritional and related to end stage liver disease. Her gram negative rods on blood culture could be related to her ulceration, SBP or other etiology. I do not think Maria Del Rosario's ulcer will heal in light of her current medical condition. Hospice would be very appropriate for palliative wound care efforts s divya family be amenable. 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), severe PEM, influenza A, Gram negative bacteremia Smoking Status: Current Everyday Smoker (1-2 ppd) Recreational Drug Use: No Alcohol Use: Regular Use (12 pack every 1-2 days) Review of Systems General: Fatigue, Other (altered mental status, confusion) HEENT: Other (hearing wnl) Genitourinary: Other Musculoskeletal: shoulder pain (dislocation) Neurological: Weakness Exam Vital Signs Date Time Temp Pulse Resp B/P (MAP) Pulse Ox O2 Delivery O2 Flow Rate FiO2 10/26/22 12:00 37.2 107 20 104/48 (66) 93 Nasal Cannula 4.00 Capillary Refill : Less Than 3 Seconds General Appearance: thin HEENT: other (normal hearing) Neck: full range of motion Cardiovascular: no edema Respiratory: no respiratory distress, no accessory muscle use Gastrointestinal: soft, other (ascites) Neurologic/Psychiatric: alert, other (not oriented to time or place) Skin: jaundice Sacral Ulcer: 19x8.3x0.1. The epithelialization is none. There is no tunneling or undermining. Drainage is small and serous. Granulation is none. Necrotic is large and eschar. The margins are flat Results Laboratory Tests 10/26/22 05:45: White Blood Count 21.8H, Red Blood Count 2.76L, Hemoglobin 8.9L, Hematocrit 28L, Mean Corpuscular Volume 101H, Mean Corpuscular Hemoglobin 32, Mean Corpuscular Hemoglobin Concent 32, Red Cell Distribution Width 23.3H, Platelet Count 61L, Mean Platelet Volume 10.7, Immature Granulocyte % (Auto) 1, Neutrophils (%) (Auto) 83H, Lymphocytes (%) (Auto) 8L, Monocytes (%) (Auto) 7, Eosinophils (%) (Auto) 0, Basophils (%) (Auto) 0, Neutrophils # (Auto) 18.1H, Lymphocytes # (Auto) 1.8, Monocytes # (Auto) 1.6H, Eosinophils # (Auto) 0.1, Basophils # (Aut o) 0.1, Immature Granulocyte # (Auto) 0.3H, Neutrophils % (Manual) 88, Lymphocytes % (Manual) 4, Monocytes % (Manual) 6, Eosinophils % (Manual) 1, Band Neutrophils 1, Nucleated Red Blood Cells 1, Percent Immature Platelet Fraction 4.0, Polychromasia MODERATE, Anisocytosis MARKED, Macrocytosis MODERATE, Target Cells SLIGHT, Sodium Level 135, Potassium Level 3.8, Chloride Level 103, Carbon Dioxide Level 24, Anion Gap 8, Blood Urea Nitrogen 24H, Creatinine 0.65, Estimat Glomerular Filtration Rate 99, BUN/Creatinine Ratio 37, Glucose Level 151H, Calcium Level 7.9L, Corrected Calcium 9.8, Total Bilirubin 10.5#H, Aspartate Amino Transf (AST/SGOT) 128H, Alanine Aminotransferase (ALT/SGPT) 74H, Alkaline Phosphatase 97, Total Protein 6.2L, Albumin 1.6#L 10/26/22 08:20: Lactic Acid Level 1.53 Microbiology 10/25/22 Blood Culture - Preliminary, Resulted Gram Negative Zya See Comments Microbiology 10/25/22 Blood Culture - Preliminary, Resulted Gram Negative Zay See Comments 10/25/22 Blood Culture - Preliminary, Resulted Gram Negative Zay See Comments Assessment/Plan/Dx Assessment: 1. Unstageable pressure ulcer of sacrum 2. Severe PEM 3. Refractory anemia with thrombocytopenia 4. Influenza A 5. Gram negative bacteremia 6. End stage liver disease with ascites Plan: 1. Cleanse daily with vashe. Apply bordered foam dressing and change once daily. This patient is a good candidate for hospice care with palliative wound care. She is currently high risk for surgical debridement 2. Likely multifocal. Defer to primary 3. Defer to primary 4. Defer to primary 5. Defer to primary 6. Defer to primary JASMIN ALARCON MD Oct 26, 2022 16:25
[2022-10-26] MEDS: ENOXAPARIN 40 MG/0.4 ML (LOVENOX) SYR SC SCH (17:42)
[2022-10-26] MEDS: cefTRIAXone 1 GM PRE-MIX 50 ML IV SCH (17:42)
[2022-10-27] MEDS: KETOROLAC 15 MG/ML VIAL IVP PRN (02:30)
[2022-10-27 03:33] VITALS: BP 116/56
[2022-10-27 06:17] LABS: MEAN CORPUSCULAR VOLUME 102 fL (80-99)
[2022-10-27 06:19] LABS: BASOPHILS # (AUTO) 0.1 10^3/uL (0.0-0.1); BASOPHILS % (AUTO) 0 % (0-10); EOSINOPHILS # (AUTO) 0.3 10^3/uL (0.0-0.3); EOSINOPHILS % (AUTO) 2 % (0-10); HEMATOCRIT 27 % (35-52); HEMOGLOBIN 8.7 g/dL (11.5-16.0); LYMPHOCYTES # (AUTO) 1.2 10^3/uL (1.0-4.0); LYMPHOCYTES % (AUTO) 8 % (12-44); MEAN CORPUSCULAR HEMOGLOBIN 32 pg (25-34); MEAN CORPUSCULAR HGB CONC 32 g/dL (32-36); MEAN PLATELET VOLUME 11.6 fL (9.0-12.2); MONOCYTES # (AUTO) 0.6 10^3/uL (0.0-1.0); MONOCYTES % (AUTO) 4 % (0-12); NEUTROPHILS # (AUTO) 12.4 10^3/uL (1.8-7.8); NEUTROPHILS % (AUTO) 85 % (42-75); PLATELET COUNT 64 10^3/uL (130-400); WHITE BLOOD COUNT 14.6 10^3/uL (4.3-11.0)
[2022-10-27 06:31] LABS: ALBUMIN 1.6 GM/DL (3.2-4.5)
[2022-10-27 06:32] LABS: POTASSIUM 3.7 MMOL/L (3.6-5.0)
[2022-10-27 06:33] LABS: CALCIUM 7.3 MG/DL (8.5-10.1)
[2022-10-27 06:34] LABS: TOTAL PROTEIN 6.5 GM/DL (6.4-8.2)
[2022-10-27 06:36] LABS: BILIRUBIN,TOTAL 9.7 MG/DL (0.1-1.0)
[2022-10-27 06:38] LABS: CREATININE SERUM 0.72 MG/DL (0.60-1.30)
[2022-10-27 07:55] VITALS: BP 103/50
--- NOTE | 2022-10-27 08:30 | Occupational Ther Daily Note ---
OT Current Status-Daily Note Subjective Pt alert, lying in bed. Pt declines any OOB activities. No c/o pain. Mental Status/Objective Patient Orientation: Person, Confused Attachments: IV, Oxygen, Telemetry ADL-Treatment Pt declines any OOB activities or brushing teeth/washing face. Pt requires assist to set up meal then with vc's will use correct utensil to cut food and bring to mouth. After session, pt sitting in recliner with call light/phone in reach. All needs met in room. Therapy Code Descriptions/Definitions Functional [place] Measure: 0=Not Assessed/NA 4=Minimal Assistance 1=Total Assistance 5=Supervision or Setup 2=Maximal Assistance 6=Modified [place] 3=Moderate Assistance 7=Complete IndependenceSCALE: Activities may be completed with or without assistive devices. 7-Dihdmejepc-cvayipd completes the activity by him/herself with no assistance from a helper. 5-Set-up or Clean-up Assistance-helper sets up or cleans up; patient completes activity. [place] assists only prior to or following the activity. 4-Supervision or Touching Assistance-helper provides verbal cues and/or touching/steadying and/or contact guard assistance as patient completes activity. Assistance may be provided throughout the activity or intermittently. 3-Partial/Moderate Assistance-helper does LESS THAN HALF the effort. [place] lifts, holds or supports trunk or limbs, but provides less than half the effort. 2-Substantial/Maximal Assistance-helper does MORE THAN HALF the effort. [place] lifts or holds trunk or limbs and provides more than half the effort. 1-Msrahlgtw-uyuccb does ALL the effort. Patient does none of the effort to complete the activity. Or, the assistance of 2 or more helpers is required for the patient to complete the activity. If activity was not attempted, code reason: 7-Patient Refused. 9-Not Applicable-not attempted and the patient did not perform the activity before the current illness, exacerbation or injury. 10-Not Attempted due to Environmental Limitations-(lack of equipment, weather restraints, etc.). 88-Not Attempted due to Medical Conditions or Safety Concerns. Eating (QC): 5 OT Intermediate Goals Intermediate Goals Time Frame: Nov 16, 2022 Eating (QC): 4 Oral Hygiene (QC): 4 Toileting Hygiene (QC): 3 Shower/Bathe Self (QC): 3 Upper Body Dressing (QC): 3 Lower Body Dressing (QC): 3 On/Off Footwear (QC): 3 Additional Goals: 1-Demonstrate ADL Tasks, 2-Verbalize Understanding, 3- ImproveStrength/Jun 1=Demonstrate adherence to instructed precautions during ADL tasks. 2=Patient will verbalize/demonstrate understanding of assistive devices/modifications for ADL. 3=Patient will improve strength/tolerance for activity to enable patient to perform ADL's. OT Education/Plan Problem List/Assessment Assessment: Decreased Activ Tolerance, Impaired Bed Mobility, Impaired Cognition, Impaired Self-Care Skills Discharge Recommendations Plan/Recommendations: Continue POC Treatment Plan/Plan of Care Patient would benefit from OT for education, treatment and training to promote independence in ADL's, mobility, safety and/or upper extremity function for ADL's. Plan of Care: ADL Retraining, Caregiver Training, Cognitive Retraining, Functional Mobility, Group Exercise/Act as Ind, UE Funct Exercise/Act Treatment Duration: Nov 16, 2022 Frequency: 3 times per week (3-5x/week ) Estimated Hrs Per Day: .25 hour per day Rehab Potential: Poor Time Start Time: 08:00 Stop Time: 08:15 DATE: Oct 27, 2022 Total Time Billed (hr/min): 15 Billed Treatment Time 1 visit-ADL 1 (15 min) KAMRYN MAURO Oct 27, 2022 08:30
[2022-10-27] MEDS: DOCUSATE SODIUM 100 MG (COLACE) CAP PO SCH (08:42)
[2022-10-27] MEDS: OSELTAMIVIR 75 MG (TAMIFLU) CAPSULE PO SCH (08:42)
[2022-10-27] MEDS: AZITHROMYCIN 250 MG TAB (ZITHROMAX) PO SCH (08:42)
[2022-10-27] MEDS: LACTULOSE SYRUP 10GM/15ML (ENULOSE) 30ML UDC PO SCH (08:42)
[2022-10-27] MEDS: SENNOSIDES 8.6 MG (SENOKOT) TAB PO SCH (08:42)
--- NOTE | 2022-10-27 10:15 | Physical Therapy Progress Note ---
Therapy Progress Note Pt laying Supine in bed as SENIOR WEB DESIGNER enters room. DOUGH PANNER had just repositioned to comfort. Pt declined moving at this time. 1 visit, no tx rendered ROBERT ORELLANA PTA Oct 27, 2022 10:15
[2022-10-27] MEDS: D5 1/2 NS W/KCL 20 MEQ/L 1,000 ML IV SCH (11:07)
--- NOTE | 2022-10-27 11:55 | Progress Note - Hospitalist ---
[facility] MED STUDENT 10/27/22 1155: Subjective HPI/CC On Admission Date Seen by Provider: Oct 27, 2022 Time Seen by Provider: 09:15 Maria Del Rosario is a 62 yo female admitted for respiratory failure and influenza A. Pt's past medical hx is unknown as she is a poor historian. She is alert and oriented x2 with son and sister at bedside. Sister reports there is no DPOA for medical decision making. The pt lives at home alone and had recent falls. The sister apparently found her on the couch covered in urine and bruises. She reports her house is dark, so they did not notice how yellow she was becoming. They only became aware of the liver disease within the last month after going to Dr. Miller for blood work. Family reports pt drinks a 12 pack of beer every couple days and smokes 1-2 ppd of cigarettes. She has been doing both of these for some time. Her last drink and cigarette were 10/13. She has not taking any of her prescribed medications since then either. Pt has coccyx ulceration that family states they just noticed about a week ago. They report she has been sick recently, but they thought she was doing better. Pt was found to have total bilirubin of 10.5. On 08/03/22 t-bili was 5.[address] records[address] chest showed patchy bilateral ground glass and airspace pulmonary infiltrated. CT abd/pelvis showed lobulated liver likely cirrhosis and some abdominal/pelvic ascites. She was also found to have a right anterior shoulder dislocation that was not reducible. She is currently on 4L O2 via NC with adequate oxygen saturations. Subjective/Events-last exam Pt being seen in f/u for chronic liver disease, respiratory failure and influenza A. Pt is alert and oriented to self and place, but not time. She has trouble remembering what we talked about yesterday and is unable to recall whether she was given her morning medications. Sister is present at bedside and hospice was once again discussed. Sister stated son would be coming soon to make that decision. Currently pt denies any pain or concerns. ROS neg unless otherwise specified. Review of Systems General: No Chills, No Fatigue HEENT: No Head Aches, No Visual Changes Pulmonary: No Dyspnea, No Cough Cardiovascular: No: Chest Pain, Palpitations Gastrointestinal: No: Nausea, Vomiting, Diarrhea, Constipation Genitourinary: No Dysuria, No Frequency Musculoskeletal: back pain; No: shoulder pain Neurological: No: Weakness, Numbness Focused Exam Lactate Level 10/26/22 08:20: Lactic Acid Level 1.53 Objective Exam Vital Signs Vital Signs Date Time Temp Pulse Resp B/P (MAP) Pulse Ox O2 Delivery O2 Flow Rate FiO2 10/27/22 09:00 Nasal Cannula 4.00 10/27/22 07:55 37.1 89 16 103/50 (67) 98 Capillary Refill : Less Than 3 Seconds General Appearance: Chronically ill, Thin HEENT: PERRL/EOMI, Moist Mucous Membranes Neck: Full Range of Motion, Normal Inspection Respiratory: Chest Non Tender, No Accessory Muscle Use, No Respiratory Distress , Rales Cardiovascular: Regular Rate, Rhythm, No Murmur Gastrointestinal: Non Tender, Distended, Other (bruising across abdomen) Extremity: Non Tender, Pedal Edema (2+ pitting edema to knees bilaterally with woody texture of feet and ankles) Neurologic/Psychiatric: Alert, Depressed Affect, Disoriented Skin: Jaundice Results/Procedures Lab Laboratory Tests 10/27/22 05:45 Patient resulted labs reviewed. Imaging: Reviewed Imaging Report Assessment/Plan Assessment and Plan Assess & Plan/Chief Complaint Chronic Liver Disease Acute respiratory failure Severe sepsis d/t pneumonia Influenza A Coccyx ulcer Anemia Right anterior shoulder dislocation ETOH and tobacco abuse Chronic Liver Disease -Total bili 9.7, increased from 5.8 in July, but decreased since admission -INR, AST and ALT elevated -CT abd/pelvis showed lobulated liver likely cirrhosis -Lactulose Acute respiratory failure -On 4L NC currently with adequate saturations Severe sepsis-gram neg rods -Azithromycin and Ceftriaxone -NaCl at 75mls/hr -Leukocytosis improving Influenza A -Supportive care Coccyx ulcer -Wound care consulted -Likely not a surgical candidate for debridement with frail state Anemia -Stable, will continue to monitor Right anterior shoulder dislocation -Not reducible d/t chronicity of dislocation ETOH and tobacco abuse Disposition: Will discuss options further with son today who will be making decisions as the pt does not have capacity to do this herself. Will discuss code status as well. Hospice vs. surgical consult for debridement of wound and orthopedic consult for shoulder repair. Diet: Regular Code status: Full Code Diagnosis/Problems Diagnosis/Problems (1) Decompensated hepatic cirrhosis Status: Acute (2) Anterior shoulder dislocation Status: Acute Qualifiers: Qualified Codes: S43.014A - Anterior dislocation of right humerus, initial encounter (3) Respiratory failure Status: Acute Qualifiers: Qualified Codes: J96.01 - Acute respiratory failure with hypoxia (4) Influenza A Status: Acute (5) Gram-negative bacteremia Status: Acute (6) Stage IV pressure ulcer of sacral region Status: Acute (7) Osteomyelitis of sacrum Status: Acute (8) Poor prognosis Status: Acute (9) Hypoalbuminemia due to protein-calorie malnutrition Status: Acute (10) Goals of care, counseling/discussion Status: Acute (11) Tobacco abuse Status: Acute SONJA FLORES MD 10/27/22 1600: Subjective HPI/CC On Admission Time Seen by Provider: 10:25 Assessment/Plan Assessment and Plan Assess & Plan/Chief Complaint Admitted with end stage liver disease and unstageable sacral ulcer, complicated by several other issues. Family has elected to pursue hospice care. Referrals will be made to nursing homes for placement. They have also requested DNR status. We will transition to comfort measures only status while in the [facility]. Palliative care/social work assisting with discharge planning. Supervisory-Addendum Brief Verification & Attestation Participated in pt care: history, MDM, physical Personally performed: exam, history, MDM, supervision of care Care discussed with: Medical Student Procedures: n/a Results interpretation: Verified all documentation A medical student performed and documented this service in my presence. I reviewed and verified all information documented by the medical student and made modifications to such information, when appropriate. I personally performed the physical exam and medical decision making. WILBUR LUCIANO MED STUDENT Oct 27, 2022 11:55 SONAJ FLORES MD Oct 27, 2022 16:00
[2022-10-27] MEDS ORDERED: ONDANSETRON 4 MG/2 ML (SDV) Z0FRAN IVP PRN (12:00)
[2022-10-27] MEDS ORDERED: SALIVA SUBSTITUTE 60 ML SPRAY(MOUTHKOTE) MM PRN (12:00)
[2022-10-27] MEDS ORDERED: GLYCOPYRROLATE 0.2 MG/ML (ROBINUL) 2 ML VIAL IV PRN (12:00)
[2022-10-27] MEDS ORDERED: ARTIFICAL TEARS 0.4 ML UNIT DOSE (REFRESH PLUS) OU PRN (12:00)
[2022-10-27] MEDS ORDERED: ACETAMINOPHEN 650 MG SUPP (TYLENOL) PR PRN (12:00)
[2022-10-27] MEDS ORDERED: LORazepam 1 MG (ATIVAN) TAB SL PRN (12:00)
[2022-10-27] MEDS ORDERED: RT-ALBUTEROL/IPRATROPIUM 3 ML (DUONEB) VIAL INH PRN (12:00)
[2022-10-27] MEDS ORDERED: BISACODYL 10 MG SUPP (DULCOLAX) PR PRN (12:00)
[2022-10-27] MEDS ORDERED: PROMETHAZINE INJ 25 MG/ML (PHENERGAN) AMP IVP PRN (12:00)
[2022-10-28] MEDS: morphine INJ 4 MG/ML 1 ML (VIAL/SYRINGE) IV PRN (05:47)
--- NOTE | 2022-10-28 14:23 | Progress Note - Hospitalist ---
Subjective HPI/CC On Admission Date Seen by Provider: Oct 28, 2022 Time Seen by Provider: 10:50 Maria Del Rosario is a 62 yo female admitted for respiratory failure and influenza A. Pt's past medical hx is unknown as she is a poor historian. She is alert and oriented x2 with son and sister at bedside. Sister reports there is no DPOA for medical decision making. The pt lives at home alone and had recent falls. The sister apparently found her on the couch covered in urine and bruises. She reports her house is dark, so they did not notice how yellow she was becoming. They only became aware of the liver disease within the last month after going to Dr. Miller for blood work. Family reports pt drinks a 12 pack of beer every couple days and smokes 1-2 ppd of cigarettes. She has been doing both of these for some time. Her last drink and cigarette were 10/13. She has not taking any of her prescribed medications since then either. Pt has coccyx ulceration that family states they just noticed about a week ago. They report she has been sick recently, but they thought she was doing better. Pt was found to have total bilirubin of 10.5. On 08/03/22 t-bili was 5.[address] ED records[address] chest showed patchy bilateral ground glass and airspace pulmonary infiltrated. CT abd/pelvis showed lobulated liver likely cirrhosis and some abdominal/pelvic ascites. She was also found to have a right anterior shoulder dislocation that was not reducible. She is currently on 4L O2 via NC with adequate oxygen saturations. Subjective/Events-last exam She is sleepy. She denies pain. Her sister is at the bedside and has no questions or concerns. Focused Exam Lactate Level 10/26/22 08:20: Lactic Acid Level 1.53 Objective Exam Vital Signs Vital Signs Date Time Temp Pulse Resp B/P (MAP) Pulse Ox O2 Delivery O2 Flow Rate FiO2 10/28/22 08:50 Nasal Cannula 2.00 10/27/22 07:55 37.1 89 16 103/50 (67) 98 Capillary Refill : Less Than 3 Seconds General Appearance: No Apparent Distress, Chronically ill Respiratory: Lungs Clear, No Respiratory Distress Cardiovascular: Regular Rate, Rhythm, No Murmur Gastrointestinal: Normal Bowel Sounds, Soft Extremity: Normal Inspection, Pedal Edema Neurologic/Psychiatric: Alert, Disoriented Skin: Warm/Dry, Jaundice Results/Procedures Lab Patient resulted labs reviewed. Imaging: Reviewed Imaging Report Assessment/Plan Assessment and Plan Assess & Plan/Chief Complaint Decompensated hepatic cirrhosis Alcohol abuse Hypoalbuminemia Influenza A Severe sepsis Sacral decubitus ulcer Osteomyelitis Gram negative bacteremia Fall Anterior shoulder dislocation Tobacco abuse Poor prognosis Goals of care discussion Comfort measures only status Comfort care order set in place Social work/palliative care assisting with discharge planning Awaiting placement with [facility] Diagnosis/Problems Diagnosis/Problems (1) Respiratory failure Status: Acute Qualifiers: Chronicity: acute Respiratory failure complication: hypoxia Qualified Codes: J96.01 - Acute respiratory failure with hypoxia (2) Influenza A Status: Acute (3) Decompensated hepatic cirrhosis Status: Acute (4) Severe sepsis Status: Acute (5) Osteomyelitis of sacrum Status: Acute (6) Stage IV pressure ulcer of sacral region Status: Acute (7) Gram-negative bacteremia Status: Acute (8) Poor prognosis Status: Acute (9) Goals of care, counseling/discussion Status: Acute (10) Hypoalbuminemia due to protein-calorie malnutrition Status: Acute (11) Alcohol abuse Status: Acute (12) Tobacco abuse Status: Acute (13) Anterior shoulder dislocation Status: Acute Qualifiers: Encounter type: initial encounter Laterality: right Qualified Codes: S43.014A - Anterior dislocation of right humerus, initial encounter SONJA FLORES MD Oct 28, 2022 14:23
--- NOTE | 2022-10-29 12:32 | Progress Note - Hospitalist ---
Subjective HPI/CC On Admission Date Seen by Provider: Oct 29, 2022 Time Seen by Provider: 12:00 Maria Del Rosario is a 62 yo female admitted for respiratory failure and influenza A. Pt's past medical hx is unknown as she is a poor historian. She is alert and oriented x2 with son and sister at bedside. Sister reports there is no DPOA for medical decision making. The pt lives at home alone and had recent falls. The sister apparently found her on the couch covered in urine and bruises. She reports her house is dark, so they did not notice how yellow she was becoming. They only became aware of the liver disease within the last month after going to Dr. Miller for blood work. Family reports pt drinks a 12 pack of beer every couple days and smokes 1-2 ppd of cigarettes. She has been doing both of these for some time. Her last drink and cigarette were 10/13. She has not taking any of her prescribed medications since then either. Pt has coccyx ulceration that family states they just noticed about a week ago. They report she has been sick recently, but they thought she was doing better. Pt was found to have total bilirubin of 10.5. On 08/03/22 t-bili was 5.[address] records[address] chest showed patchy bilateral ground glass and airspace pulmonary infiltrated. CT abd/pelvis showed lobulated liver likely cirrhosis and some abdominal/pelvic ascites. She was also found to have a right anterior shoulder dislocation that was not reducible. She is currently on 4L O2 via NC with adequate oxygen saturations. Subjective/Events-last exam She is more alert today. She is having some back pain. She is oriented to person and place. She does not know the date or exactly why she is in the hospital. She does know it is Tuesday and she had a fall. Her medical issues are explained and she says she would not want a surgery. We again discussed hospice care and she agrees that is what she wants to do. Objective Exam Vital Signs Vital Signs Date Time Temp Pulse Resp B/P (MAP) Pulse Ox O2 Delivery O2 Flow Rate FiO2 10/29/22 07:56 Nasal Cannula 2.00 10/27/22 07:55 37.1 89 16 103/50 (67) 98 Capillary Refill : Less Than 3 Seconds General Appearance: No Apparent Distress, Chronically ill HEENT: Scleral Icterus (L), Scleral Icterus (R) Respiratory: Lungs Clear, No Respiratory Distress Cardiovascular: Regular Rate, Rhythm, No Murmur Gastrointestinal: Normal Bowel Sounds, Soft Extremity: Normal Inspection, No Pedal Edema Neurologic/Psychiatric: Alert, Disoriented Skin: Jaundice Results/Procedures Lab Patient resulted labs reviewed. Imaging: Reviewed Imaging Report Assessment/Plan Assessment and Plan Assess & Plan/Chief Complaint Decompensated hepatic cirrhosis Alcohol abuse Hypoalbuminemia Influenza A Severe sepsis Sacral decubitus ulcer Osteomyelitis Gram negative bacteremia Fall Anterior shoulder dislocation Tobacco abuse Poor prognosis Goals of care discussion Comfort measures only status Comfort care order set in place Social work/palliative care assisting with discharge planning Awaiting placement with [facility] Diagnosis/Problems Diagnosis/Problems (1) Respiratory failure Status: Acute Qualifiers: Chronicity: acute Respiratory failure complication: hypoxia Qualified Codes: J96.01 - Acute respiratory failure with hypoxia (2) Influenza A Status: Acute (3) Decompensated hepatic cirrhosis Status: Acute (4) Severe sepsis Status: Acute (5) Osteomyelitis of sacrum Status: Acute (6) Stage IV pressure ulcer of sacral region Status: Acute (7) Gram-negative bacteremia Status: Acute (8) Poor prognosis Status: Acute (9) Goals of care, counseling/discussion Status: Acute (10) Hypoalbuminemia due to protein-calorie malnutrition Status: Acute (11) Alcohol abuse Status: Acute (12) Tobacco abuse Status: Acute (13) Anterior shoulder dislocation Status: Acute Qualifiers: Encounter type: initial encounter Laterality: right Qualified Codes: S43.014A - Anterior dislocation of right humerus, initial encounter SONJA FLORES MD Oct 29, 2022 12:32
[2022-10-29] MEDS ORDERED: LORA2ORA PO ×2 (17:22→17:28)
[2022-10-29] MEDS ORDERED: MORP100S7 PO ×2 (17:22→17:28)
[2022-10-29] MEDS: morphine INJ 4 MG/ML 1 ML (VIAL/SYRINGE) IV PRN (19:32)
== END 2022-10-29 19:38 | disposition hospice, inpatient (51) | DRG 871 ==
LOC: EDUNIT# 12:14 → EDBD 12:16 → ER 12:16 → 4TH 14:45
PROVIDERS: ADMIT Internal Medicine; ATTEND Internal Medicine
DX: A41.9 Sepsis, unspecified organism (principal); E43 Unspecified severe protein-calorie malnutrition; L89.154 Pressure ulcer of sacral region, stage 4; J18.9 Pneumonia, unspecified organism; J96.01 Acute respiratory failure with hypoxia; K72.00 Acute and subacute hepatic failure without coma; M86.9 Osteomyelitis, unspecified; R18.8 Other ascites; Z66 Do not resuscitate; Z51.5 Encounter for palliative care; R65.20 Severe sepsis without septic shock; K76.9 Liver disease, unspecified; J10.1 Influenza due to other identified influenza virus with other respiratory manifestations; D64.9 Anemia, unspecified; S43.004A Unspecified dislocation of right shoulder joint, initial encounter; F10.10 Alcohol abuse, uncomplicated; F17.210 Nicotine dependence, cigarettes, uncomplicated; K74.60 Unspecified cirrhosis of liver; K72.10 Chronic hepatic failure without coma; D69.6 Thrombocytopenia, unspecified; Z20.822 Contact with and (suspected) exposure to COVID-19
CPT/HCPCS: 36415; 51702; 70450; 71250; 72125; 73030; 74176; 80048; 80053; 80076; 80306; 80320; 81000; 82140; 83605; 83735; 84100; 85007; 85025; 85027; 85384; 85610; 85730; 86850; 86900; 86901; 87040; 87077; 87186; 87636; 93041